=== PATIENT | male | born 1985 | race Caucasian/White ===

== ENCOUNTER 2020-11-03 19:59 | Emergency (ER) | payer MEDICAID, SELFPAY ==
[2020-11-03 20:05] VITALS: BP 129/71; PULSE 81; RESP 12; TEMP 36.9; O2SAT 98
--- NOTE | 2020-11-03 20:06 | ED.NAVMDI ---
HPI - Nausea/Vomiting/Diarrhea General Chief complaint: Nausea/Vomiting/Diarrhea Stated complaint: vomiting blood Time Seen by Provider: 11/03/20 20:06 History of Present Illness HPI Narrative: 35 yo male presents to the ED after vomiting blood. He reports that after eating this evening he had a few episodes of forceful projectile vomiting. That was followed by a few small episodes of emesis tinged with bright red blood. He says that it is not unusual for him to vomit like this, but he has never noted blood before. No weakness, numbness, abdominal pain. Related Data Home Medications Medication Instructions Recorded Confirmed buprenorphine-naloxone tablet SUBLINGUAL 11/03/20 Allergies Allergy/AdvReac Type Severity Reaction Status Date / Time banana Allergy Itching Verified 11/03/20 21:17 Penicillins Allergy Other Verified 11/03/20 21:17 watermelon Allergy Itching Verified 11/03/20 21:17 Review of Systems Review of Systems: All systems reviewed & are unremarkable except as noted in HPI and below Constitutional: Constitutional: Denies chills, Denies fever(s) and Denies weakness ENT: Reports sore throat Cardiovascular: Cardiovascular: Denies chest pain Respiratory: Respiratory: Denies dyspnea Gastrointestinal: Gastrointestinal: Denies abdominal pain, Denies diarrhea, Reports nausea and Reports vomiting Genitourinary: Genitourinary: Denies hematuria Neurologic: Denies numbness PMFSH Past Medical History Medical History (Updated 11/04/20 @ 04:18 by Elian Willett MD) Opiate abuse, episodic Social History Social History (Updated 11/04/20 @ 04:19 by Elian Willett MD) Substance use type: former substance user and heroin Exam Const: General: no acute distress and alert Nutritional Appearance: obese Orientation/consciousness: patient oriented x3 HENMT: Head: normal to inspection Resp: Effort & Inspection: normal respiratory effort Auscultation: clear to auscultation bilaterally Cardio: Rate: regular rate Rhythm: regular rhythm GI: GI Palp: Yes Soft to palpation and No Tenderness to palpation present (GI) Skin: General skin exam: normal color Neuro: General: patient oriented x3 and moves all extremities Speech: normal speech Gait exam (Neuro): Normal gait present Extrem: General: normal to inspection Course Vital Signs Vital signs: Vital Signs Temperature 36.9 C 11/03/20 20:05 Pulse Rate 81 11/03/20 20:05 Respiratory Rate 12 11/03/20 20:05 Blood Pressure 129/71 11/03/20 20:05 Pulse Oximetry 98 11/03/20 20:05 Temperature 36.9 C 11/03/20 20:05 Pulse Rate 81 11/03/20 20:05 Respiratory Rate 12 11/03/20 20:05 Blood Pressure 129/71 11/03/20 20:05 Pulse Oximetry 98 11/03/20 20:05 MDM - Nausea/Vomiting/Diarrhea MDM Narrative Medical decision making narrative: History is consistent with Julianne-noris tear. No active bleeding. It sounds like he probably suffers from acid reflux chronically. I senthil start him on protonix and advise him to avoid NSAIDs. Medical Records Attestation: I reviewed the patient's medical records. Lab Data Attestation: I reviewed the patient's lab results. Result diagrams: 11/03/20 21:01 11/03/20 21:01 Labs: Lab Results 11/03/20 11/03/20 Range/Units 21:01 21:01 WBC 11.9 H (4.5-10.0) K/mm3 RBC 4.75 (4.6-6.20) M/mm3 Hgb 15.2 (14.0-18.0) g/dL Hct 44.7 (42.0-52.0) % MCV 94.1 (80-100) fl MCH 32.0 (26-34) pg MCHC 34.0 (32-36) g/dl RDW 13.3 (11.5-14.5) % Plt Count 167 (150-375) k/mm3 MPV 11.5 H (7.4-10.4) fl Immature Gran % (Auto) 0.2 (0-0.5) % Neut % (Auto) 78.6 H (45.5-73.1) % Lymph % (Auto) 12.4 L (18.3-44.2) % [place] % (Auto) 6.4 (2.6-8.5) % Eos % (Auto) 2.1 (0-4.4) % Baso % (Auto) 0.3 (0.2-1.2) % Lymph # (Auto) 1.47 (0.9-3.2) K/mm3 [place] # (Auto) 0.8 H (0.1-0.6) K/mm3 Eos # (Auto) 0.3 (0-0.3) K/mm3 B
--- NOTE | 2020-11-03 20:25 | PC.NURSE ---
patient brought back to ED room 7 with c/o belching followed by N/V. emesis x 2 tonight with blood in emesis. patient lives in [facility] but states he is here visiting his father. patient admits to daily marijuana use. hx of heroin use but now on suboxone. c/o constipation. alert. oriented.
[2020-11-03] MEDS: ONDANSETRON INJ 4 MG/2 ML VIAL IV PUSH (20:35)
[2020-11-03] MEDS: SODIUM CHLORIDE 0.9% IV 1,000 ML 999 ML IV CONT (20:35)
[2020-11-03] MEDS: PANTOPRAZOLE SODIUM IV 40 MG VIAL IV PUSH (20:35)
--- NOTE | 2020-11-03 20:43 | PC.NURSE ---
this RN unsuccessful x 2 for peripheral IV access. Albina RN to bedside. patient updated on current treatment plan.
[2020-11-03 21:08] LABS: Basophils Percent Auto 0.3 % (0.2-1.2); Eosinophils Absolute Auto 0.3 K/mm3 (0-0.3); Eosinophils Percent Auto 2.1 % (0-4.4); Hematocrit 44.7 % (42.0-52.0); Hemoglobin 15.2 g/dL (14.0-18.0); Immature Granulocyte Absolute 0.02 K/mm3 (0.00-0.031); Immature Granulocyte Percent A 0.2 % (0-0.5); Lymphocytes Absolute Auto 1.47 K/mm3 (0.9-3.2); Lymphocytes Percent Auto 12.4 % (18.3-44.2); Mean Corpuscular Volume 94.1 fl (80-100); Mean Platelet Volume 11.5 fl (7.4-10.4); Monocytes Absolute Auto 0.8 K/mm3 (0.1-0.6); Monocytes Percent Auto 6.4 % (2.6-8.5); Neutrophils Absolute Auto 9.4 K/mm3 (1.3-6.7); Neutrophils Percent Auto 78.6 % (45.5-73.1); Platelet Count Result 167 k/mm3 (150-375); Red Blood Count 4.75 M/mm3 (4.6-6.20); Red Cell Distribution Width 13.3 % (11.5-14.5); White Blood Count 11.9 K/mm3 (4.5-10.0)
[2020-11-03 21:22] LABS: Alanine Aminotransferase 22 U/L (4-50); Albumin Level 4.4 g/dL (3.5-5.1); Alkaline Phosphatase 46 U/L (38-126); Anion Gap 5 mmol/L (8-16); Aspartate Amino Transferase 32 U/L (17-59); Bilirubin,Total 1.4 mg/dL (0.2-1.3); Blood Urea Nitrogen 16 mg/dL (9-20); Calcium 9.4 mg/dL (8.4-10.2); Carbon Dioxide 29 mmol/L (22-30); Chloride 105 mmol/L (98-107); Estimated CRCL calculation 195 ml/min; Estimated Glomerular Filt Rate > 60; Glucose 96 mg/dL (75-110); Lipase 78 U/L (23-300); Potassium 4.1 mmol/L (3.4-5.0); Sodium 139 mmol/L (137-145)
--- NOTE | 2020-11-03 21:50 | PC.NURSE ---
labs all resulted. IVF continue. patient wants monitor turned off. questions about possible CT. will check with provider. call light in reach.
== END 2020-11-03 22:48 | disposition home or self-care (01) ==
PROVIDERS: Emergency Provider Emergency Medicine
DX: K22.6 Gastro-esophageal laceration-hemorrhage syndrome (principal); R11.2 Nausea with vomiting, unspecified
CPT/HCPCS: 36415; 80053; 83690; 85025; 96361; 96374; 96375; 99284; C9113; J2405; J7030

== ENCOUNTER 2020-11-06 11:44 | Emergency (ER) | payer MEDICAID, SELFPAY ==
[2020-11-06 11:48] VITALS: BP 105/71; PULSE 62; RESP 18; TEMP 36.8; O2SAT 96
--- NOTE | 2020-11-06 13:00 | PC.NURSE ---
pt anxious to leave despite no treatment at this time. provided notified and rn informed pt that provider requests pt stay longer to receive tx. pt informed that provided will see him within 10 minutes. pt agrees to stay but repeatedly verbalizes that he has places to go today and can't sit around hospital
--- NOTE | 2020-11-06 13:19 | ED.GENADULT ---
HPI - General Adult General Chief complaint: Skin/Abscess/Foreign Body Stated complaint: bleeding wound Time Seen by Provider: 11/06/20 11:51 Source: patient and EMS Mode of arrival: EMS Limitations: no limitations History of Present Illness HPI narrative: Patient a 35-year-old male who presents with bleeding from the right lower extremity just above the ankle already had a superficial vessel that he had touched today and it began to bleed patient denies any pain similar occurrence injury or trauma otherwise or anticoagulant use presents per EMS in no distress Related Data Home Medications Medication Instructions Recorded Confirmed buprenorphine-naloxone tablet SUBLINGUAL 11/03/20 Allergies Allergy/AdvReac Type Severity Reaction Status Date / Time banana Allergy Itching Verified 11/06/20 11:53 Penicillins Allergy Other Verified 11/06/20 11:53 watermelon Allergy Itching Verified 11/06/20 11:53 Review of Systems Review of Systems: All systems reviewed & are unremarkable except as noted in HPI and below PMFSH Past Medical History Medical History Opiate abuse, episodic Social History Social History Substance use type: former substance user and heroin Gender identity (if verbalized by the patient): Male Exam Narrative: Exam Narrative: GENERAL: Well-appearing, well-nourished, and in no acute distress. HEAD: Normocephalic, atraumatic. EYES: PERRLA and EOMI. ENT: Nares clear, no rhinorrhea or epistaxis. Mucous membranes moist. CHEST: Clear to auscultation. No respiratory distress. No wheezes rales or rhonchi EXTREMITIES: Normal range of motion. No edema. Small bleeding vessel distal right lower extremity SKIN: Warm, dry, no rash. NEURO: No focal deficits. Alert and oriented x3. Cranial nerves II through XII grossly intact. Neurovascularly intact PSYCH: Normal mood and affect. Course Course Emergency Course: Patient has suture placed with hemostasis no complications neurovascularly intact pre and post procedure felt appropriate for outpatient reevaluation Vital Signs Vital signs: Vital Signs Temperature 98.3 F 11/06/20 11:48 Pulse Rate 62 11/06/20 11:48 Respiratory Rate 18 11/06/20 11:48 Blood Pressure 105/71 11/06/20 11:48 Pulse Oximetry 96 01/18/21 11:48 Temperature 98.3 F 11/06/20 11:48 Pulse Rate 62 11/06/20 11:48 Respiratory Rate 18 11/06/20 11:48 Blood Pressure 105/71 11/06/20 11:48 Pulse Oximetry 96 11/06/20 11:48 Procedures Laceration Laceration 1: Date: 11/06/20 Time: 13:25 Site: lower extremity Side (If applicable): right Description: other Depth: simple, single layer Local Anesthetic: lidocaine 1% and with epi ====== Skin Level ====== Skin layer closed with: nylon Size (cm): 4-0 Number of sutures: 1 Technique: simple, interrupted ====== Subcutaneous Layer ====== ====== Muscle Layer ====== ====== Tendon Layer ====== Medical Decision Making MDM Narrative Medical decision making narrative: Patients injury or pain is consistent with musculoskeletal etiology. No signs of neurological or vascular compromise on exam. Compartments and tisues are soft without signs of compartment syndrome. Pain is felt appropriate for further evaluation on an outpatient basis. Vital Signs Vital Signs: Vital Signs Temperature 98.3 F 11/06/20 11:48 Pulse Rate 62 11/06/20 11:48 Respiratory Rate 18 11/06/20 11:48 Blood Pressure 105/71 11/06/20 11:48 Pulse Oximetry 96 11/06/20 11:48 Temperature 98.3 F 11/06/20 11:48 Pulse Rate 62 11/06/20 11:48 Respiratory Rate 18 11/06/20 11:48 Blood Pressure 105/71 11/06/20 11:48 Pulse Oximetry 96 11/06/20 11:48 Discharge Plan Discharge Clinical Impression: Bleeding of blood vessel
== END 2020-11-06 13:35 | disposition home or self-care (01) ==
PROVIDERS: Emergency Provider Emergency Medicine
DX: R23.3 Spontaneous ecchymoses (principal)
CPT/HCPCS: 12001; 99282